=== PATIENT | female | born 1970 | race Caucasian/White ===

== ENCOUNTER → 2018-05-09 | Outpatient (CLI) | payer BC ==
[2018-05-09 14:01] VITALS: BP 119/79; PULSE 62; RESP 20; TEMP 97.9; BMI 37.6
--- NOTE | 2018-05-09 17:13 | P.BASOAP ---
Subjective Progress Note Date: 05/09/18 Principal diagnosis: Morbid obesity Patient in our service from previous lap band placement. Recently she was diagnosed with recurrent aspiration pneumonia. She was told that she had a dilated esophagus on her CAT scan. Those results are not available to me at this time. Patient believes she has 2.8 mL in her band. She is here today to for evaluation. Her starting weight was 220. Currently a 204. She is interested in possible band removal. Objective - Vital Signs Vital signs: Vital Signs Temp 97.9 F 05/09/18 13:54 Pulse 62 05/09/18 13:54 Resp 20 05/09/18 13:54 BP 119/79 05/09/18 13:54 Pulse Ox Intake & Output 05/08/18 05/09/18 05/09/18 18:59 06:59 18:59 Weight 92.578 kg - Exam Abdomen: Soft, nontender, nondistended Assessment/Plan (1) Morbid obesity Narrative/Plan: Options discussed with the patient in detail. At this time I agree with plans for emptying of the band and subsequent band removal. Options of upper GI reviewed. Patient would like to consider the option of band removal further but is agreeable to emptying the band at this time.The patient's lap band port was palpated. The site was aseptically prepped. The Lauren needle was advanced into the port. Aspiration took place. A total of 2.5 ml of fluid was removed. Pressure was held and a sterile dressing was applied. Plan: Date: 05/09/18 Initial Weight: 92.578 kg Initial BMI: 37.6 Current Weight: 92.578 kg Current BMI: 37.6 Type of Surgery: Total Volume in Band: 0 Previous Volume: 2.5 Volume Removed: 2.5 Volume Added: 0 Band Size:
== END | disposition home or self-care (01) ==
LOC: BARWHC3 13:19
PROVIDERS: ATTEND Surgery
DX: E66.01 Morbid (severe) obesity due to excess calories (principal); Z68.37 Body mass index [BMI] 37.0-37.9, adult
CPT/HCPCS: 99202